=== PATIENT | male | born 1960 | race Caucasian/White ===

== ENCOUNTER 2018-08-20 14:10 | Inpatient (IN) | payer OTHER ==
[2018-08-20] MEDS ORDERED: HYDROcodone/APAP 7.5-325MG 1 EACH TAB PO ONE (14:53)
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
--- NOTE | 2018-08-20 15:43 | XR ---
EXAMINATION TYPE: XR femur LT DATE OF EXAM: 08/20/2018 COMPARISON: NONE HISTORY: Pain TECHNIQUE: 4 views are submitted FINDINGS: Surgical change involving the femur noted with hyperostosis seen. There is a comminuted int ertrochanteric fracture of the left femur. Distal femur less well visualized. IMPRESSION: Comminuted intertrochanteric fracture left hip.
--- NOTE | 2018-08-20 15:47 | XR ---
EXAMINATION TYPE: XR knee limited LT DATE OF EXAM: 08/20/2018 COMPARISON: NONE HISTORY: Pain TECHNIQUE: Four views are submitted. FINDINGS: There is diffuse osteopenia. Sclerotic density within the distal diaphysis of the femur likely benign . Narrowing of the medial compartment of the knee joint. No erosive change or acute fracture. Small a mount of fluid in the suprapatellar bursa.. Osseous structures are intact. No acute fracture seen. IMPRESSION: 1. No acute fracture or dislocation.
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
[2018-08-20] MEDS ORDERED: NALOXONE 0.4 MG/ML 1 ML VIAL IV PRN (16:26)
[2018-08-20] MEDS ORDERED: ACETAMINOPHEN TAB 325 MG TAB PO PRN (16:26)
[2018-08-20] MEDS ORDERED: HYDROmorphone 0.5 MG/0.5 ML SYRINGE IVP PRN (16:26)
[2018-08-20 16:46] LABS: Basophils % (A) 0 %; Eosinophils # (A) 0.4 k/uL (0-0.7); Eosinophils % (A) 3 %; HCT 43.9 % (39.0-53.0); HGB 14.4 gm/dL (13.0-17.5); Lymphocytes # (A) 0.6 k/uL (1.0-4.8); Lymphocytes % (A) 5 %; MCH 29.9 pg (25.0-35.0); MCHC 32.8 g/dL (31.0-37.0); MCV 91.1 fL (80.0-100.0); Mean Platelet Volume 8.8; Monocytes # (A) 0.5 k/uL (0-1.0); Monocytes % (A) 4 %; Neutrophils # (A) 10.9 k/uL (1.3-7.7); Neutrophils % (A) 88 %; Platelet Count 109 k/uL (150-450); RBC 4.82 m/uL (4.30-5.90); RDW 13.2 % (11.5-15.5); WBC 12.5 k/uL (3.8-10.6)
[2018-08-20 16:59] LABS: ALT 108 U/L (21-72); AST 78 U/L (17-59); Albumin 4.1 g/dL (3.5-5.0); Alkaline Phosphatase 101 U/L (38-126); Anion Gap 7 mmol/L; Blood Urea Nitrogen 16 mg/dL (9-20); Calcium 8.7 mg/dL (8.4-10.2); Carbon Dioxide 28 mmol/L (22-30); Chloride 103 mmol/L (98-107); Glucose 114 mg/dL (74-99); Potassium 4.9 mmol/L (3.5-5.1); Sodium 138 mmol/L (137-145); Total Bilirubin 1.1 mg/dL (0.2-1.3)
[2018-08-20 17:01] LABS: INR 0.9 (<1.2); Partial Thromboplastin Time 22.3 sec (22.0-30.0); Prothrombin Time 9.5 sec (9.0-12.0)
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
[2018-08-20] MEDS ORDERED: LORazepam 1 MG TAB PO PRN (23:35)
[2018-08-20] MEDS ORDERED: ALPRAZolam 0.25 MG TAB PO PRN (23:35)
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
--- NOTE | 2018-08-21 00:51 | XR ---
EXAMINATION TYPE: XR chest 1V portable DATE OF EXAM: 08/21/2018 COMPARISON: NONE HISTORY: Short of breath. TECHNIQUE: Single frontal view of the chest is obtained. FINDINGS: Heart and mediastinum are normal. Lungs are clear. Diaphragm is normal. There is no heart failure. Bony thorax is intact. There is a large amount of air in the stomach. IMPRESSION: Aerophagia. No active cardiopulmonary disease. No heart failure.
[2018-08-21] MEDS: HEPARIN SODIUM,PORCINE 5,000 UNIT/ML 1 ML VIAL SQ SCH ×2 (07:30→22:22)
[2018-08-21] MEDS: PANTOPRAZOLE 40 MG TABLET PO SCH (08:04)
[2018-08-21 08:06] LABS: Basophils % (A) 0 %; Eosinophils # (A) 0.1 k/uL (0-0.7); Eosinophils % (A) 1 %; HCT 35.1 % (39.0-53.0); HGB 11.6 gm/dL (13.0-17.5); Lymphocytes # (A) 0.7 k/uL (1.0-4.8); Lymphocytes % (A) 8 %; MCH 29.8 pg (25.0-35.0); MCV 90.2 fL (80.0-100.0); Mean Platelet Volume 9.4; Monocytes # (A) 0.5 k/uL (0-1.0); Monocytes % (A) 6 %; Neutrophils # (A) 6.8 k/uL (1.3-7.7); Neutrophils % (A) 84 %; Platelet Count 108 k/uL (150-450); RBC 3.89 m/uL (4.30-5.90); RDW 13.3 % (11.5-15.5); WBC 8.2 k/uL (3.8-10.6)
[2018-08-21 08:28] LABS: ALT 120 U/L (21-72); AST 69 U/L (17-59); Albumin 3.4 g/dL (3.5-5.0); Alkaline Phosphatase 66 U/L (38-126); Anion Gap 7 mmol/L; Blood Urea Nitrogen 15 mg/dL (9-20); Calcium 8.1 mg/dL (8.4-10.2); Carbon Dioxide 28 mmol/L (22-30); Chloride 101 mmol/L (98-107); Glucose 115 mg/dL (74-99); Potassium 4.2 mmol/L (3.5-5.1); Sodium 136 mmol/L (137-145); Total Bilirubin 1.4 mg/dL (0.2-1.3); Total Protein 5.9 g/dL (6.3-8.2)
[2018-08-21] MEDS ORDERED: IV FLUID CONTINUATION 1,000 ML IV ONE (12:53)
[2018-08-21] MEDS ORDERED: PROPOFOL 10 MG/ML 20 ML VIAL IV ONE (12:58)
[2018-08-21] MEDS ORDERED: ceFAZolin 1,000 MG VIAL ONE (12:58)
[2018-08-21] MEDS ORDERED: MIDAZOLAM 2 MG/2 ML VIAL ONE (12:58)
[2018-08-21] MEDS ORDERED: KETAMINE 10 MG/ML 20 ML VIAL ONE (12:58)
[2018-08-21] MEDS ORDERED: fentaNYL (PF) 50 MCG/ML 2 ML AMP ONE (12:58)
[2018-08-21] MEDS ORDERED: LACTATED RINGERS 1,000 ML IV ONE ×2 (13:06→14:55)
[2018-08-21] MEDS ORDERED: SODIUM CHLORIDE 0.9% 50 ML with ceFAZolin 2,000 MG IV ONE ×2 (13:10)
[2018-08-21] MEDS ORDERED: fentaNYL (PF) 50 MCG/ML 2 ML AMP IV PRN (13:42)
[2018-08-21] MEDS ORDERED: BUPIVACAIN-EPI 0.25%-1:200,000 30 ML VIAL SQ ONE ×2 (14:00→15:12)
--- NOTE | 2018-08-21 15:31 | XR ---
Fluoroscopy History: LEFT IT NAILING LEFT IT NAILING, 3 MIN 2 SEC FLUORO, 2 IMAGES SCANNED
[2018-08-21] MEDS ORDERED: HYDROcodone/APAP 5-325MG 1 EACH TAB PO PRN ×2 (15:34)
--- NOTE | 2018-08-21 16:27 | XR ---
EXAMINATION TYPE: XR Hip Limited LT DATE OF EXAM: 08/21/2018 COMPARISON: 08/20/2018 left femur HISTORY: Post left hip pin TECHNIQUE: Single AP view left hip FINDINGS: Left hip pin is been placed. It extends through the fracture into the femoral head. Postsur gical changes are present. Surgical skin marta are present laterally. IMPRESSION: No new fractures post left hip replacement
[2018-08-21] MEDS: SODIUM CHLORIDE 0.9% 1,000 ML IV SCH (17:33)
[2018-08-21] MEDS: NICOTINE 14MG/24HR PATCH TRANSDERM SCH (17:33)
[2018-08-21] MEDS: LACTATED RINGERS 1,000 ML IV SCH (17:35)
[2018-08-21 18:52] LABS: Basophils % (A) 0 %; Eosinophils # (A) 0.2 k/uL (0-0.7); Eosinophils % (A) 2 %; HCT 31.3 % (39.0-53.0); HGB 10.3 gm/dL (13.0-17.5); Lymphocytes # (A) 0.5 k/uL (1.0-4.8); Lymphocytes % (A) 6 %; MCH 30.1 pg (25.0-35.0); MCHC 33.1 g/dL (31.0-37.0); MCV 90.9 fL (80.0-100.0); Mean Platelet Volume 9.3; Monocytes # (A) 0.5 k/uL (0-1.0); Monocytes % (A) 6 %; Neutrophils # (A) 6.9 k/uL (1.3-7.7); Neutrophils % (A) 85 %; Platelet Count 106 k/uL (150-450); RBC 3.44 m/uL (4.30-5.90); RDW 13.4 % (11.5-15.5); WBC 8.2 k/uL (3.8-10.6)
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
[2018-08-21] MEDS: ceFAZolin IN SWFI 2 GM/20 ML SYRINGE IVP SCH (22:23)
[2018-08-22] MEDS: ceFAZolin IN SWFI 2 GM/20 ML SYRINGE IVP SCH (05:28)
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
[2018-08-22 08:39] LABS: Basophils % (A) 0 %; Eosinophils # (A) 0.2 k/uL (0-0.7); Eosinophils % (A) 2 %; HCT 26.8 % (39.0-53.0); HGB 9.1 gm/dL (13.0-17.5); Lymphocytes # (A) 0.6 k/uL (1.0-4.8); Lymphocytes % (A) 8 %; MCH 30.4 pg (25.0-35.0); MCV 89.3 fL (80.0-100.0); Mean Platelet Volume 8.7; Monocytes # (A) 0.6 k/uL (0-1.0); Monocytes % (A) 8 %; Neutrophils # (A) 5.6 k/uL (1.3-7.7); Neutrophils % (A) 80 %; Platelet Count 101 k/uL (150-450); RDW 13.1 % (11.5-15.5); WBC 7.1 k/uL (3.8-10.6)
[2018-08-22 08:50] LABS: ALT 108 U/L (21-72); AST 78 U/L (17-59); Albumin 3.1 g/dL (3.5-5.0); Alkaline Phosphatase 59 U/L (38-126); Anion Gap 5 mmol/L; Blood Urea Nitrogen 13 mg/dL (9-20); Calcium 7.9 mg/dL (8.4-10.2); Carbon Dioxide 29 mmol/L (22-30); Chloride 98 mmol/L (98-107); Glucose 123 mg/dL (74-99); Potassium 4.1 mmol/L (3.5-5.1); Sodium 132 mmol/L (137-145); Total Bilirubin 1.3 mg/dL (0.2-1.3); Total Protein 5.5 g/dL (6.3-8.2)
[2018-08-22] MEDS: NICOTINE 14MG/24HR PATCH TRANSDERM SCH (09:54)
[2018-08-22] MEDS: HEPARIN SODIUM,PORCINE 5,000 UNIT/ML 1 ML VIAL SQ SCH (09:54)
[2018-08-22] MEDS: PANTOPRAZOLE 40 MG TABLET PO SCH (09:54)
--- NOTE | 2018-08-22 10:00 | P.PN ---
Subjective Progress Note Date: 08/22/18 Principal diagnosis: Status post IT nail left hip This is a 57 year-old male post left hip IT nail. This is post-op day 1. The patient was evaluated at the bedside today. The patient denies nausea, vomiting , abdominal pain, shortness of breath, and chest pain this morning. He states his pain is controlled at this time. The patient has not been up with physical therapy yet this morning. He did have a gallbladder ultrasound this morning due to elevated liver enzymes, the ultrasound was negative. Objective - Vital Signs Vital signs: Vital Signs Temp 98.3 F 08/22/18 00:50 Pulse 109 H 08/22/18 00:50 Resp 16 08/22/18 00:50 BP 124/81 08/22/18 00:50 Pulse Ox 96 08/22/18 00:50 Intake & Output 08/21/18 08/22/18 08/22/18 18:59 06:59 18:59 Intake Total 1991 1730 Output Total 350 825 Balance 1641 905 Intake: IV 1400 Intake, IV Titration 330 Amount Lactated Ringers 1,000 ml 330 @ 20 mls/hr IV .Q24H [facility] Rx#:[id number] Oral 591 1400 Output: Urine 200 825 Estimated Blood Loss 150 Other: Voiding Method Indwelling Catheter # Voids 1 1 - Exam The patient does not appear in acute distress. Alert and orientated x3. Dressing is clean dry and intact. Incision appears fine with no erythema or active drainage. Calf is soft and nontender. Good foot and ankle motion without difficulty. Sensation and circulatory status is intact. - Labs CBC & Chem 7: 08/22/18 08:02 08/22/18 08:02 Labs: Abnormal Lab Results - Last 24 Hours (Table) 08/21/18 08/22/18 08/22/18 Range/Units 18:17 08:02 08:02 RBC 3.44 L 3.00 L (4.30-5.90) m/uL Hgb 10.3 L 9.1 L (13.0-17.5) gm/dL Hct 31.3 L 26.8 L (39.0-53.0) % Plt Count 106 L 101 L (150-450) k/uL Lymphocytes # 0.5 L 0.6 L (1.0-4.8) k/uL Sodium 132 L (137-145) mmol/L Glucose 123 H (74-99) mg/dL Calcium 7.9 L (8.4-10.2) mg/dL AST 78 H (17-59) U/L ALT 108 H (21-72) U/L Total Protein 5.5 L (6.3-8.2) g/dL Albumin 3.1 L (3.5-5.0) g/dL Assessment and Plan (1) Status post hip surgery Current Visit: Yes Status: Acute Code(s): Z98.890 - OTHER SPECIFIED POSTPROCEDURAL STATES SNOMED Code(s): 312510155 (2) Hip fracture, left Current Visit: Yes Status: Acute Code(s): S72.002A - FRACTURE OF UNSP PART OF NECK OF LEFT FEMUR, INIT SNOMED Code(s): 308931379 Plan: 1. Continue pain control 2. Anticoagulation with Lovenox 40 mg daily 3. Start physical therapy and ambulation today 4. Anticipate discharge home with homecare in the next 1-2 days. Case management to assess home situation.
[2018-08-22] MEDS: SODIUM CHLORIDE 0.9% 1,000 ML IV SCH (11:43)
[2018-08-22] MEDS: LACTATED RINGERS 1,000 ML IV SCH (15:16)
--- NOTE | 2018-08-23 07:49 | PN ---
PROGRESS NOTE DATE OF SERVICE: 08/22/2018 This 57-year-old gentleman was admitted after left hip fracture, underwent closed reduction and insertion of intertrochanteric nail by Orthopedic Surgery. No chest pain. No palpitations. No fever. The gallbladder ultrasound showed no acute abnormality. No chest pain. No palpitations. No fever. EXAM: Alert and oriented x3. Pulse is 113, blood pressure 130/78, respiration 17, temperature 99.4, pulse ox 97% on room air. HEENT: Conjunctivae normal. NECK: No jugular venous distention. CARDIOVASCULAR: S1, S2. RESPIRATORY: Breath sounds diminished in the bases. No rhonchi. No crackles. ABDOMEN: Soft, nontender. No mass palpable. LEGS: Status post surgery. NERVOUS SYSTEM: No focal deficits. LABS: WBC 7.2, hemoglobin 9.2, sodium 132. AST 78 and ALT is 108. ASSESSMENT: 1. Status post fall and left rib fractures, closed reduction and insertion of intertrochanteric nail of the left hip. 2. Increased WBC. 3. Thrombocytopenia. 4. History of nicotine dependence. 5. Increased AST, ALT, and bilirubin, possible acute hepatitis of undetermined etiology. 6. Increased random blood sugar. 7. Anemia, normocytic. 8. Thrombocytopenia. RECOMMENDATIONS AND DISCUSSION: I recommend to continue current management and closely follow with Orthopedic Surgery. Otherwise, repeat labs, acute hepatitis panel. Guarded prognosis because of multiple complex medical issues. Further recommendations to follow. MMODL / IJN: [id number] /
[2018-08-23] MEDS: PANTOPRAZOLE 40 MG TABLET PO SCH (09:17)
[2018-08-23] MEDS: ENOXAPARIN 40 MG/0.4 ML SYRINGE SQ SCH (09:17)
[2018-08-23] MEDS: NICOTINE 14MG/24HR PATCH TRANSDERM SCH (09:17)
[2018-08-23] MEDS: LACTATED RINGERS 1,000 ML IV SCH (09:18)
[2018-08-23] MEDS: SODIUM CHLORIDE 0.9% 1,000 ML IV SCH (09:19)
[2018-08-23 09:44] LABS: Basophils % (A) 0 %; Eosinophils # (A) 0.1 k/uL (0-0.7); Eosinophils % (A) 2 %; HCT 23.8 % (39.0-53.0); HGB 8.1 gm/dL (13.0-17.5); Lymphocytes # (A) 0.4 k/uL (1.0-4.8); Lymphocytes % (A) 6 %; MCH 30.9 pg (25.0-35.0); MCHC 33.9 g/dL (31.0-37.0); MCV 91.2 fL (80.0-100.0); Mean Platelet Volume 8.2; Monocytes # (A) 0.5 k/uL (0-1.0); Monocytes % (A) 7 %; Neutrophils % (A) 83 %; RBC 2.61 m/uL (4.30-5.90); WBC 7.2 k/uL (3.8-10.6)
[2018-08-23 09:58] LABS: ALT 82 U/L (21-72); AST 59 U/L (17-59); Albumin 2.8 g/dL (3.5-5.0); Alkaline Phosphatase 57 U/L (38-126); Anion Gap 5 mmol/L; Blood Urea Nitrogen 13 mg/dL (9-20); Calcium 7.6 mg/dL (8.4-10.2); Carbon Dioxide 28 mmol/L (22-30); Chloride 98 mmol/L (98-107); Glucose 123 mg/dL (74-99); Potassium 4.2 mmol/L (3.5-5.1); Sodium 131 mmol/L (137-145); Total Bilirubin 1.5 mg/dL (0.2-1.3); Total Protein 5.2 g/dL (6.3-8.2)
[2018-08-23 10:01] LABS: Platelet Count 87 k/uL (150-450)
--- NOTE | 2018-08-23 10:04 | P.OP ---
Date of Procedure: 08/21/18 Preoperative Diagnosis: 1. Left intertrochanteric femur fracture 2. Healed left femoral shaft fracture with retained hardware Postoperative Diagnosis: 1. Left intertrochanteric femur fracture 2. Healed left femoral shaft fracture with retained hardware Procedure(s) Performed: Surgical fixation of left intertrochanteric femur fracture with cephalomedullary nail Implants: Synthes 11mm short cephalomedullary nail (130 degree) with 100mm spiral blade and 5mm x 40mm locking screw Anesthesia: spinal Surgeon: Bigg Patricio Estimated Blood Loss (ml): 150 Pathology: none sent Condition: stable Disposition: PACU Indications for Procedure: The patient is a 57-year-old male seen in consult for a displaced left intertrochanteric femur fracture. We discussed the diagnosis, pertinent anatomy & fracture characteristics. Operative treatment was recommended. Risks & benefits were discussed including (but not limited to) the risk of infection, bleeding, injury to vessels/nerves/adjacent structures, intraoperative fracture , nonunion, malunion, painful hardware & need for additional surgery. Patient's questions were answered. Patient expressed understanding and wished to proceed with surgical fixation of the fracture. Description of Procedure: After informed consent was obtained, the patient was taken to the operative suite and spinal anesthesia was administered by the anesthesia team. The patient was then transferred to a fracture table and positioned supine with the operative limb in a well-padded boot secured with coban and the contralateral limb was flexed, abducted and secured to a well-leg gomez. All bony prominences were padded in the typical fashion. A time-out was performed to confirm patient identifiers, side, site and procedure. All team members were in agreement. The fracture was manually reduced (and confirmed with orthogonal fluoroscopy images). Preoperative antibiotics were given. At this point, the left lower extremity was prepped and draped in a sterile fashion. A small stab incision was made proximal to the greater trochanter and a guidewire inserted. The initial skin incision provided suboptimal trajectory for the wire and a second stab incision was made. Fluoroscopy was used to localize the starting point at the tip of the greater trochanter and the wire was advanced into the proximal femur. The skin incision was extended appropriately to accommodate the entry reamer which was inserted through a tissue protector and advanced to the level of the lesser trochanter. The reamer and guidewire were removed. Based on preoperative radiographs & intraoperative fracture reduction, an 11mm short nail was selected, attached to the insertion handle and passed down the medullary canal. The distal end of the nail reached the level of the existing lateral femoral plate from the patient's old fracture without leaving an gap between the implants or abutting the existing hardware. An incision was made laterally along the proximal thigh for placement of the cephalomedullary spiral blade. A drill sleeve was inserted down to the lateral femoral cortex. A guidewire was advanced through the nail and into the femoral head. Position of the wire within the head was checked on orthogonal views and adjusted to satisfactory alignment. Measuring off the guidewire, a 100mm spiral blade was selected and inserted to the appropriate depth. The set screw was inserted & tightened to lock the blade in place. A marginal amount of manual compression was applied through the insertion cannula. Compression at the fracture site was confirmed on imaging. Another incision was made for insertion of the distal locking screw. The drill sleeve was advanced to the lateral femoral cortex. The bone was drilled, measured and 5mm distal cortical screw was inserted. The jig was removed. Final x-rays were taken to confirm final fracture reduction and implant position. All wounds were irrigated thoroughly. The wounds were closed in layers : the fascia with #1 Vicryl, the subcutaneous tissue with 2-0 Vicryl and the skin closed with marta. The incision sites were injected with local anaesthetic with epinephrine for postoperative pain control and hemostasis. Sterile dressings were applied. All sponge & needle counts were correct at the end of the procedure. Anesthesia was reversed uneventfully and the patient was transferred to a hospital bed and transported to the PACU in stable condition.
--- NOTE | 2018-08-23 12:51 | P.PN ---
Subjective Progress Note Date: 08/23/18 Principal diagnosis: Status post IT nail left hip This is a 57 year-old male post left hip IT nail. This is post-op day 2. The patient was evaluated at the bedside today. The patient denies nausea, vomiting , abdominal pain, shortness of breath, and chest pain this morning. He states his pain is controlled at this time. The patient has been up with physical therapy and ambulated in the hallway and to the bathroom. Objective - Vital Signs Vital signs: Vital Signs Temp 99.6 F 08/23/18 07:24 Pulse 102 H 08/23/18 07:24 Resp 16 08/22/18 23:54 BP 128/74 08/23/18 07:24 Pulse Ox 98 08/23/18 07:24 Intake & Output 08/22/18 08/23/18 08/23/18 18:59 06:59 18:59 Intake Total 320 Output Total 1950 800 Balance -1950 -480 Weight 72.575 kg Intake: Intake, IV Titration 320 Amount Lactated Ringers 1,000 ml 320 @ 20 mls/hr IV .Q24H CARMELITA Rx#:[id number] Output: Urine 1950 800 Other: Voiding Method Urinal Urinal Urinal # Voids 1 - Exam The patient does not appear in acute distress. Alert and orientated x3. Dressing is clean dry and intact. Incision appears fine with no erythema or active drainage. Calf is soft and nontender. Good foot and ankle motion without difficulty. Sensation and circulatory status is intact. - Labs CBC & Chem 7: 08/23/18 08:44 08/23/18 08:44 Labs: Abnormal Lab Results - Last 24 Hours (Table) 08/23/18 08/23/18 Range/Units 08:44 08:44 RBC 2.61 L (4.30-5.90) m/uL Hgb 8.1 L (13.0-17.5) gm/dL Hct 23.8 L (39.0-53.0) % Plt Count 87 L (150-450) k/uL Lymphocytes # 0.4 L (1.0-4.8) k/uL Sodium 131 L (137-145) mmol/L Creatinine 0.62 L (0.66-1.25) mg/dL Glucose 123 H (74-99) mg/dL Calcium 7.6 L (8.4-10.2) mg/dL Total Bilirubin 1.5 H (0.2-1.3) mg/dL ALT 82 H (21-72) U/L Total Protein 5.2 L (6.3-8.2) g/dL Albumin 2.8 L (3.5-5.0) g/dL Assessment and Plan (1) Status post hip surgery Current Visit: Yes Status: Acute Code(s): Z98.890 - OTHER SPECIFIED POSTPROCEDURAL STATES SNOMED Code(s): 970974574 (2) Hip fracture, left Current Visit: Yes Status: Acute Code(s): S72.002A - FRACTURE OF UNSP PART OF NECK OF LEFT FEMUR, INIT SNOMED Code(s): 134301449 Plan: 1. Continue pain control 2. Anticoagulation with Lovenox 40 mg daily 3. Continue physical therapy and ambulation today 4. Anticipate discharge home with homecare in the next 1-2 days. Case management to assess home situation.
[2018-08-23 16:28] LABS: Basophils % (A) 0 %; Eosinophils # (A) 0.2 k/uL (0-0.7); Eosinophils % (A) 3 %; HCT 27.4 % (39.0-53.0); HGB 9.1 gm/dL (13.0-17.5); Lymphocytes # (A) 0.5 k/uL (1.0-4.8); Lymphocytes % (A) 6 %; MCHC 33.1 g/dL (31.0-37.0); MCV 90.6 fL (80.0-100.0); Monocytes # (A) 0.5 k/uL (0-1.0); Monocytes % (A) 7 %; Neutrophils # (A) 6.2 k/uL (1.3-7.7); Neutrophils % (A) 82 %; Platelet Count 114 k/uL (150-450); RBC 3.02 m/uL (4.30-5.90); RDW 13.1 % (11.5-15.5); WBC 7.5 k/uL (3.8-10.6)
--- NOTE | 2018-08-24 00:43 | PN ---
PROGRESS NOTE DATE OF SERVICE: 08/23/2018. HISTORY: This 57-year-old gentleman was admitted with left hip fracture, is being evaluated for the home situation by social work and clinical case manager. No chest pain. No palpitations. Patient underwent surgery. No fever, no cough. Gallbladder ultrasound was done and was unimpressive. EXAM: Alert and oriented x3. Pulse 102, blood pressure 120/70, respirations 20, temperature 99.6, pulse ox 98% on room air. HEENT: Conjunctivae normal. NECK: No JVD. CARDIOVASCULAR: S1 and S2 muffled. LUNGS: Breath sounds diminished at the bases. ABDOMEN: Soft, nontender. LEGS: Status post surgery. No edema, no swelling. NERVOUS SYSTEM: No focal deficits. LABS: WBC 7.2, hemoglobin 9.1. Other labs noted. ASSESSMENT: 1. Status post left hip fracture and closed reduction and insertion of intertrochanteric nail of the left hip. 2. Increased WBC. 3. Thrombocytopenia. 4. History of nicotine dependence. 5. Increased AST and ALT and bilirubin, possible acute hepatitis of undetermined etiology. 6. Anemia, normocytic. RECOMMENDATIONS: Recommend to continue current medications and symptomatic treatment. Otherwise, labs are stable at this time. I recommend continued current monitoring. I would also recommend evaluation by PT OT and social workers and evaluate the home situation. Guarded prognosis. Further recommendations to follow. MMODL / IJN: [id number] /
[2018-08-24] MEDS: NICOTINE 14MG/24HR PATCH TRANSDERM SCH (07:29)
[2018-08-24] MEDS: ENOXAPARIN 40 MG/0.4 ML SYRINGE SQ SCH (07:30)
[2018-08-24] MEDS: PANTOPRAZOLE 40 MG TABLET PO SCH (07:30)
[2018-08-24 07:43] VITALS: BP 124/69; PULSE 108; RESP 16; TEMP 97.6
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
[2018-08-24 08:56] LABS: Basophils % (A) 0 %; Eosinophils # (A) 0.3 k/uL (0-0.7); Eosinophils % (A) 5 %; HCT 23.8 % (39.0-53.0); HGB 7.7 gm/dL (13.0-17.5); Lymphocytes # (A) 0.5 k/uL (1.0-4.8); Lymphocytes % (A) 8 %; MCH 29.3 pg (25.0-35.0); MCHC 32.2 g/dL (31.0-37.0); MCV 90.9 fL (80.0-100.0); Mean Platelet Volume 7.8; Monocytes # (A) 0.4 k/uL (0-1.0); Monocytes % (A) 7 %; Neutrophils # (A) 4.6 k/uL (1.3-7.7); Neutrophils % (A) 76 %; Platelet Count 120 k/uL (150-450); RBC 2.62 m/uL (4.30-5.90); RDW 13.1 % (11.5-15.5)
[2018-08-24 09:12] LABS: ALT 68 U/L (21-72); AST 44 U/L (17-59); Albumin 2.9 g/dL (3.5-5.0); Alkaline Phosphatase 64 U/L (38-126); Anion Gap 6 mmol/L; Blood Urea Nitrogen 15 mg/dL (9-20); Calcium 7.7 mg/dL (8.4-10.2); Carbon Dioxide 30 mmol/L (22-30); Chloride 97 mmol/L (98-107); Glucose 109 mg/dL (74-99); Potassium 4.2 mmol/L (3.5-5.1); Sodium 133 mmol/L (137-145); Total Bilirubin 1.2 mg/dL (0.2-1.3); Total Protein 5.4 g/dL (6.3-8.2)
--- NOTE | 2018-08-25 00:52 | DS ---
DISCHARGE SUMMARY DATE OF SERVICE: 08/24/2018. FINAL DIAGNOSES: 1. Status post left hip fracture, closed reduction, insertion of intertrochanteric nail left hip. 2. Increased WBC. 3. Thrombocytopenia. 4. History of nicotine dependence. 5. Increased AST, ALT, bilirubin; possibly acute hepatitis of undetermined etiology. 6. Anemia, normocytic. DISCHARGE CONDITION: The patient will be discharged in stable condition with guarded prognosis. HISTORY OF PRESENT ILLNESS: This 57-year-old gentleman with a past medical history of multiple medical problems, was admitted with left hip fracture. Patient underwent surgery by Orthopedics. The patient improved significantly. Patient will be discharged home in stable condition with guarded prognosis. On exam, vital signs are stable. Cardiovascular, S1 and S2 muffled. Abdomen soft. No focal deficits. DISCHARGE INSTRUCTIONS: 1. Diet is cardiac. 2. Activity limited. FOLLOWUP: 1. Follow up with Dr. Mcclain in 2 to 3 days. 2. Followup with Orthopedics as advised. 3. Home care. MEDICATIONS: 1. Lovenox 40 mg subcu daily for 14 days. 2. [place] 5 mg at bedtime. 3. Senokot-S daily. 4. Followup labs with Dr. Mcclain. MMODL / IJN: [id number] /
[2018-08-25 16:52] LABS: Hepatitis A Antibody IgM Non-Reactive (Non-Reactive); Hepatitis B Core IgM Non-Reactive (Non-Reactive)
== END 2018-08-24 14:44 | disposition home health service (06) | DRG 482 ==
LOC: EC 14:10 → 4SSUR 17:38
PROVIDERS: ADMIT Hospitalist; ATTEND Hospitalist
PROC: 0QS736Z Reposition Left Upper Femur with Intramedullary Internal Fixation Device, Percutaneous Approach (ICD-10-PCS; principal; 2018-08-21 07:30)
DX: S72.142A Displaced intertrochanteric fracture of left femur, initial encounter for closed fracture (principal); D69.6 Thrombocytopenia, unspecified; K75.9 Inflammatory liver disease, unspecified; D64.9 Anemia, unspecified; R73.9 Hyperglycemia, unspecified; F17.210 Nicotine dependence, cigarettes, uncomplicated; W00.0XXA Fall on same level due to ice and snow, initial encounter; V18.0XXA Pedal cycle driver injured in noncollision transport accident in nontraffic accident, initial encounter; Y92.9 Unspecified place or not applicable
CPT/HCPCS: 36415; 71045; 73501; 73502; 76705; 80053; 80074; 85025; 85610; 85730; 93005; 99284